=== PATIENT | female | born 1970 | race Caucasian/White ===

== ENCOUNTER 2024-06-18 10:27 | Emergency (ER) | payer BC, SELFPAY ==
[2024-06-18 10:30] VITALS: BP 146/100; PULSE 112; RESP 17; TEMP 36.4; O2SAT 100
[2024-06-18] MEDS: LACTATED RINGERS 1,000 ML 999 ML IV CONT (12:18)
[2024-06-18 12:24] LABS: Basophils Percent Auto 0.3 % (0.2-1.2); Eosinophils Percent Auto 0.1 % (0-4.4); Hematocrit 44.3 % (37.0-47.0); Hemoglobin 14.6 g/dL (12.0-15.0); Immature Granulocyte Absolute 0.04 K/mm3 (0.00-0.031); Immature Granulocyte Percent A 0.4 % (0-0.5); Lymphocytes Absolute Auto 0.75 K/mm3 (0.9-3.2); Lymphocytes Percent Auto 6.9 % (18.3-44.2); Mean Corpuscular Hemoglobin 27.2 pg (26-34); Mean Corpuscular Volume 82.5 fl (80-100); Mean Platelet Volume 9.2 fl (7.4-10.4); Monocytes Absolute Auto 0.5 K/mm3 (0.1-0.6); Neutrophils Absolute Auto 9.4 K/mm3 (1.3-6.7); Neutrophils Percent Auto 87.3 % (45.5-73.1); Platelet Count Result 367 k/mm3 (150-375); Red Blood Count 5.37 M/mm3 (4.2-5.4); White Blood Count 10.8 K/mm3 (4.5-10.0)
[2024-06-18 12:25] VITALS: BP 145/91; PULSE 85; RESP 16; O2SAT 100
[2024-06-18 12:27] LABS: Influenza A QL RT-PCR Negative (Negative); Influenza B QL RT-PCR Negative (Negative); RSV RNA, RT-PCR Negative (Negative); SARS-CoV-2 RNA PCR Negative (Negative)
--- NOTE | 2024-06-18 12:27 | ED.GENADULT ---
HPI - General Adult General Chief complaint: Nausea/Vomiting/Diarrhea Stated complaint: N/V Time Seen by Provider: 06/18/24 11:57 History of Present Illness HPI narrative: 54-year-old female present to the emergency department for evaluation for episode of nausea and vomiting. Patient reports that the symptoms had started last night. Patient reports her last emesis was approximately 230 in the morning. At this time patient states she does feel improved. Patient declined any medications for nausea control at this time. Related Data Allergies Allergy/AdvReac Type Severity Reaction Status Date / Time No Known Allergies Allergy Verified 06/18/24 12:12 Review of Systems Review of Systems: All systems reviewed & are unremarkable except as noted in HPI and below Exam Narrative: APPEARANCE: Well appearing, no pain, no distress, well-nourished. HEAD: normocephalic, atraumatic. EYES: PERRLA/EOMI, conjunctivae clear. NOSE: Normal no drainage EARS:TMS clear with good light reflex. THROAT: Pharynx clear, no exudate. NECK: Supple. No adenopathy, no masses. RESPIRATORY: Airway patent, respirations nonlabored. Clear to auscultation bilaterally, no rales, rhonchi, wheezing. CARDIOVASCULAR: Regular rate and rhythm without murmurs rubs or gallops. ABDOMINAL: Soft, nontender, nondistended, normal bowel sounds MUSCULOSKELETAL: Moves all extremities. Strength/ROM intact, No edema, No calf tenderness. NEURO: Alert. Cranial nerves II through XII intact. Good gait. Good coordination SKIN: Warm, dry. Normal Color Course CHANNEL BUSINESS MANAGER/PA Physician Supervision For this patient encounter, I reviewed the CHANNEL BUSINESS MANAGER or PA documentation, treatment plan, and medical decision making; and I had [id number] time with this patient. Vital Signs Vital signs: Vital Signs Temperature 97.6 F 06/18/24 10:30 Pulse Rate 112 H 06/18/24 10:30 Respiratory Rate 17 06/18/24 10:30 Blood Pressure 146/100 H 06/18/24 10:30 Pulse Oximetry 100 06/18/24 10:30 Oxygen Delivery Room Air 06/18/24 10:30 Temperature 97.6 F 06/18/24 10:30 Pulse Rate 85 06/18/24 12:25 Respiratory Rate 16 06/18/24 12:25 Blood Pressure 145/91 H 06/18/24 12:25 Pulse Oximetry 100 06/18/24 12:25 Oxygen Delivery Room Air 06/18/24 10:30 Medical Decision Making MDM Narrative Medical decision making narrative: 54-year-old female present to the emergency department for evaluation for episode of nausea vomiting last night. Patient declines any current nausea at this time. Patient is currently afebrile with a minor leukocytosis of 10.8 with normal hemoglobin of 14.6. Patient does have a mildly elevated BUN at 28 and normal creatinine of 0.7. Patient was treated with a L of IV fluids. Patient is tolerating p.o.. Patient was negative for influenza RSV and for COVID. Patient will be provided Zofran for nausea control advised to follow a clear liquid diet. Patient's and concerns were addressed patient was comfortable the plan for discharge and close follow-up. Vital Signs Vital Signs: Vital Signs Temperature 97.6 F 06/18/24 10:30 Pulse Rate 112 H 06/18/24 10:30 Respiratory Rate 17 06/18/24 10:30 Blood Pressure 146/100 H 06/18/24 10:30 Pulse Oximetry 100 06/18/24 10:30 Oxygen Delivery Room Air 06/18/24 10:30 Temperature 97.6 F 06/18/24 10:30 Pulse Rate 85 06/18/24 12:25 Respiratory Rate 16 06/18/24 12:25 Blood Pressure 145/91 H 06/18/24 12:25 Pulse Oximetry 100 06/18/24 12:25 Oxygen Delivery Room Air 06/18/24 10:30 Lab Data 06/18/24 12:19 06/18/24 12:19 Labs: Lab Results 06/18/24 06/18/24 Range/Units 11:45 12:19 WBC 10.8 H (4.5-10.0) K/mm3 RBC 5.37 (4.2-5.4) M/mm3 Hgb 14.6 (12.0-15.0) g/dL Hct 44.3 (37.0-47.0) % MCV 82.5 (80-100) fl MCH 27.2 (26-34) pg MCHC 33.0 (32-36) g/dl RDW 14.0 (11.5-14.5) % Plt Count 367 (150-375) k/mm3 MPV 9.2 (7.4-10.4) fl Immature Gran % (Auto) 0.4 (0-0.5) % Neut % (Auto) 87.3 H (45.5-73.1) % Lymph % (Auto) 6.9 L (18.3-44.2) % [place] % (Auto) 5.0 (2.6-8.5) % Eos % (Auto) 0.1 (0-4.4) % Baso % (Auto) 0.3 (0.2-1.2) % Lymph # (Auto) 0.75 L (0.9-3.2) K/mm3 [place] # (Auto) 0.5 (0.1-0.6) K/mm3 Eos # (Auto) 0.0 (0-0.3) K/mm3 Baso # (Auto) 0.0 (0.0-0.1) K/mm3 Abs Immat Gran (auto) 0.04 H (0.00-0.031) K/mm3 Absolute Neuts (auto) 9.4 H (1.3-6.7) K/mm3 Absolute Nucleated RBC 0.000 (0.0-0.012) K/mm3 Nucleated RBC % 0.0 (0.0-0.2) % Sodium 140 (137-145) mmol/L Potassium 4.0 (3.4-5.0) mmol/L Chloride 106 (98-107) mmol/L Carbon Dioxide 18 L (22-30) mmol/L Anion Gap 16 H (4-12) mmol/L BUN 28 H (7-17) mg/dL Creatinine 0.70 (0.7-1.0) mg/dL Estim Creat Clear Calc 67 ml/min Estimated GFR > 60 (59 - ) Glucose 123 H (65-110) mg/dL Calcium 9.4 (8.4-10.2) mg/dL Total Bilirubin 0.9 (0.2-1.3) mg/dL AST 35 (14-36) U/L ALT 45 H (6-35) U/L Alkaline Phosphatase 93 (38-126) U/L Total Protein 8.0 (6.3-8.2) g/dL Albumin 4.6 (3.5-5.1) g/dL Influenza A (RT-PCR) Negative (Negative) Influenza B (RT-PCR) Negative (Negative) RSV (RT-PCR) Negative (Negative) SARS-CoV-2 RNA (RT-PCR) Negative (Negative) Discharge Plan Discharge Clinical Impression: Nausea & vomiting Patient Disposition: Home Condition: Stable Instructions: Antibiotic Form, Clear Liquid Diet (ED), Acute Nausea and Vomiting (ED) Additional Instructions: Clear liquid diet for the next 1-3 days. Zofran as needed for nausea control. Have close follow-up with your primary care physician. Patient Language: Estonian Prescriptions: New ondansetron 4 mg tablet,disintegrating 4 mg PO Q8H PRN (Reason: nausea and vomiting) Qty: 14 0RF Follow-up/Referrals: PHYSICIAN,MEDICAL OFFICE REPRESENTATIVE [Primary Care Provider] - Stand Alone Forms: Work/School Release IP
[2024-06-18 12:33] LABS: Alanine Aminotransferase 45 U/L (6-35); Albumin Level 4.6 g/dL (3.5-5.1); Alkaline Phosphatase 93 U/L (38-126); Anion Gap 16 mmol/L (4-12); Aspartate Amino Transferase 35 U/L (14-36); Bilirubin,Total 0.9 mg/dL (0.2-1.3); Blood Urea Nitrogen 28 mg/dL (7-17); Calcium 9.4 mg/dL (8.4-10.2); Carbon Dioxide 18 mmol/L (22-30); Chloride 106 mmol/L (98-107); Estimated CRCL calculation 67 ml/min; Estimated Glomerular Filt Rate > 60; Glucose 123 mg/dL (65-110); Sodium 140 mmol/L (137-145)
== END 2024-06-18 13:35 | disposition home or self-care (01) ==
PROVIDERS: Emergency Medicine; Emergency Provider Emergency Medicine
DX: R11.2 Nausea with vomiting, unspecified (principal); Z20.822 Contact with and (suspected) exposure to COVID-19
CPT/HCPCS: 36415; 80053; 85025; 87637; 96360; 99283; J7120